=== PATIENT | male | born 1995 | race Caucasian/White ===

== ENCOUNTER 2024-09-07 10:03 | Outpatient (AMB) | payer BC, SELFPAY ==
--- OUTSIDE RECORDS SUMMARY | 2024-09-07 10:08 | XMS_ITS | Data Portability ---
Author Organization DAMIEN Gray [facility] Address [address] [place] [phone] Assessment Encounter Date Assessment Date Assessment LastModified by Organization Details LastModified Time 10/19/2022 10/19/2022 Strep pharyngitis, treat with PCN VK x 10 days. Out of work until 11/18, no note needed vinh Not available 10/19/2022 12:25:06 Plan of Treatment Reminders Order Date Submit Date Provider Last Modified By Organization Details Last Modified Time Details Appointments None recorded. Lab rapid strep group A, throat 2022 023 [facility] [address], [address] [place] [address], [phone], 3 12:20:23 rapid SARS CoV 2 Ag, QL IA, respiratory specimen 2022 023 [place] [address] _[facility], [address] [place] [address], [phone], 3 12:20:23 rapid flu (A+B) 2022 023 [place] [address], [address] [place] [address], [phone], 3 12:20:23 Referral None recorded. Procedures None recorded. Surgeries None recorded. Imaging None recorded. Medication Orders penicillin V potassium 500 mg tablet 2022 023 [id number], [address] [facility] [place], [address], 12:22:31 Patient TargetsNo targets recorded. Patient Instructions Encounter Date Encounter Id Patient Instructions Last Modified By Organization Details Last Modified Time 10/19/2022 [id number] sore throat: car e instructions [email or web address] Not available 10/19/2022 12:20:22 Salt water gargles: Mix 1 teaspoonful of salt in a glass of warm water. Gargle and spit out the salt water mixture one mouthful at a time until the glass is empty. Repeat 4 times daily. Please consult our office promptly if you develop any of the following symptoms: 1. A fever of at least 101??F or 38.4??C 2. Throat pain that is severe or does not start to improve within 5 to 7 days Call for an ambulance or go to the emergency room if you: 1. Have trouble breathing 2. Cannot control your saliva (drooling) due to difficulty swallowing 3. Have swelling of the neck or tongue 4. Cannot move your neck or have trouble opening your mouth [email or web address] Not available 10/19/2022 12:21:58 Reason for Referral None Reported. Results Created Date Observation Date Name Description Value Unit Range Abnormal Flag Note LastModifiedBy Organization Detail LastModifiedTime 10/19/1910/19/2022 rapid flu (A+B) Unknown Analyte Normal = Negati ve Not Available [facility] [address] [place] [address] [place], [phone], 10/19/2022 11:54:58 10/19/1910/19/2022 rapid flu (A+B) Unknown Analyte Normal = Negati ve Not Available [facility] [address] [place] [address] [place], [phone], 10/19/2022 11:54:58 10/19/1910/19/2022 rapid flu (A+B) Unknown Analyte negati ve Not Available [facility] [address] [place] [address] [place], [address], 10/19/2022 11:54:58 10/19/19 23 10/19/2022 rapid flu (A+B) Unknown Analyte negati ve Not Available [address] [place] [address], [place], [phone], 10/19/2022 11:54:58 10/19/19 23 10/19/2022 rapid SARS CoV 2 Ag, QL IA, respi rator y speci men Unknown Analyte Normal =Negat rona Not Available [address] [place] [address], [place], [phone], 10/19/2022 11:54:53 10/19/19 23 10/19/2022 rapid SARS CoV 2 Ag, QL IA, respi rator y speci men Unknown Analyte negati ve Not Available [address] [place] [address], [place], [phone], 10/19/2022 11:54:53 10/19/19 23 10/19/2022 rapid strep group A, throa t Unknown Analyte Normal = Negati ve Not Available [address] [place] [address], [place], [phone], 10/19/2022 11:53:16 10/19/19 23 10/19/2022 rapid strep group A, throa t Unknown Analyte positi ve Not Available [address] [place] [address], [place], [phone], 10/19/2022 11:53:16 Result Notes None recorded. Problems No Known Problems Medical Equipment None Reported. Allergies No known drug allergies Medications Name Sig Start Date Stop Date Status Note LastModified by Organization Details LastModified Time penicillin V potassium 500 mg tablet Take 1 tablet twice a day by oral route for 10 days. 023 active Not Available Not Available Not Avai lable Vitals Date Recorded Body height Body mass index (BMI) Body weight Oxygen saturation Oxygen saturation in Arterial blood by Pulse oximetry Heart rate Respiratory rate Body temperature Systolic blood pressure Diastolic blood pressure Provider Name and Address Organization Details Last Updated DateTime 3 182.88 cm 31.2 kg/m2 796769. 25 g 97 % 97 % 87 /min 18 /min 99.1 [degF] 126 mm[Hg] 81 mm[Hg] Nidhi Caroline PA - [facility] 3 11:57:12 Social History Question Answer Notes LastModified by Organizat ion Details LastModified Time What Is Your Level Of Alcohol Consumption? None Information not available 10/19/2022 Have You Had Direct Contact, Or Contact During Intimacy, With Monkeypox Rash, Scabs, Or Body Fluids From A Person With Monkeypox? No Information not available 10/19/2022 Do You Or Have You Ever Used Smokeless Tobacco? Currently Chews Tobacco Information not available 10/19/2022 Do You Use Any Illicit Or Recreational Drugs? No Information not available 10/19/2022 Have You Recently Traveled Abroad? No Information not available 10/19/2022 Do You Or Have You Ever Used Any Other Forms Of Tobacco Or Nicotine? Yes Information not available 10/19/2022 Sex: Unknown Functional Status None recorded. Mental Status None recorded. Family History Relationship Description Onset Age of this Age Resolved Age Notes LastModified by Organization Details LastModified Time Father No current problems or disability Not available 10/19 11:54:19 Mother No current problems or disability Not available 10/19 11:54:19 Medical History No medical history recorded. Past Encounters Encounter ID Performer Location Encounter Start Date Encounter Closed Date Diagnosis/Indication Diagnosis SNOMED-CT Code Diagnosis ICD10 Code [id number] [address] [place] [address] 08/11/2020 17:01:09 08/11/2020 19:39:14 [id number] Kim Darnell [place] [address] [address] [place] [address] 10/19/2022 11:43:05 10/19/2022 12:22:30 Streptococcal sore throat 26116001 J02.0 Health Concerns Section Related Observation LastModified by Organization Detai ls LastModified Time None Recorded Concern Status LastModified by Organization Details LastModified Time None Recorded Advance Directives Directive None Recorded Payers Encounter Date Sequence Insurance Name Policy Number Policy Malin Covered Member ID Malin Member ID Guarantor Name 08/11/2020 1 [place] [id number] [employer] [id number] [employer] 10/19/2022 1 [employer] [employer] [id number] [employer] [place] [employer] [id number] [employer] Notes Date Note Type Note Provider Name and Address Organization Details Recorded Time 10/19/2022 text/html Sore throat x 2 weeks. Accompanied by R ear pain. Tmax: 102. Symptoms improved, now worsening again, temp = 100.9 last PM Kim Darnell, DO [address] [place], [address], [place] - [facility] 10/19/2022 12:25:47
--- NOTE | 2024-09-07 10:11 | MHC.PC.OV ---
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 Intake Note: establish care Allergies No Known Allergies [No Known Allergies*] Allergy (Verified 09/07/24 10:12) Medication List - Last Reconciled 09/07/24 by Ketan Castro MD sertraline (Zoloft) 50 mg PO DAILY Tobacco use date assessed: 09/07/24 Dental Screening Dental Screen Date: 09/07/24 Did you have a dental visit in the last 12 months?: Yes Did you have a dental problem in the last 6 months where you did not have access to dental care?: No Was dental information given to patient?: Patient has dentist 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 Tobacco dip, EtOH 3-4 dr a couple times a month. No drugs HPI Comments History of Present Illness Details Documentation assistance for Ketan Castro MD, was provided by Teofilo Garcia,? Analytics Manager on 09/07/2024 at 10:44 AM EST. I, Dr. Castro, have read, observed, and verified documentation. ?? PFSH Social History Housing: House Tobacco use type: Smokeless Tobacco e-Cigarette/Vaping Use: Never Used Second Hand Smoke Exposure: No service: No Current occupational status: unemployed Current occupational exposures/hazards: No Cognitive needs: No Hearing needs: No Vision needs: No Questionnaire PHQ-9 Over the last 2 weeks, how often have you been bothered by any of the following problems? 1. Little interest or pleasure in doing things: several days 2. Feeling down, depressed, or hopeless: not at all 3. Trouble falling or staying asleep, or sleeping too much: several days 4. Feeling tired or having little energy: several days 5. Poor appetite or overeating: not at all 6. Feeling bad about yourself - or that you are a failure or have let yourself or your family down: not at all 7. Trouble concentrating on things, such as reading the newspaper or watching television: not at all 8. Moving or speaking so slowly that other people could have noticed. Or the opposite - being so fidgety or restless that you have been moving around a lot more than usual: several days 9. Thoughts that you would be better off or of hurting yourself in some way: not at all Total score: 4 Depression Screening Interpretation: Negative Depression Screening Done: Yes 27385 - PHQ-9 Billing: Yes Source: Developed by Drs. Moe Mae, Aggie Aleman, Thanh Bojorquez and colleagues, with an educational juan ramon from [employer]. Thrive Questionnaire Date Thrive assessed: 09/07/24 I am a: Patient What is your living situation today?: I have a steady place to live Within the past 12 months, did the food you bought not last and you didn't have the money to get more?: Never true Within the past 12 months, did you worry whether your food would run out before you got money to buy more?: Never true Do you have trouble paying for medicines?: No Do you have trouble getting transportation to medical appointments?: No Do you have trouble paying your heating and electricity bill?: No Do you have trouble taking care of your child, family member or friend?: No Do you have trouble with day-to-day activities such as bathing, preparing meals, shopping, managing finances, etc.?: No Are you currently unemployed and looking for a job?: No Are you interested in more education?: No Please select the resources that you would like help with: None Currently or been in a relationship where the following occur: No concerns reported THRIVE Score: 0 AUDIT C Alcohol Use Questionnaire (AUDIT-C) 1. How often do you have a drink containing alcohol?: 2-3 times a week 2. How many drinks containing alcohol do you have on a typical day when you are drinking?: 5 or 6 3. How often do you have six or more drinks on one occasion?: Monthly Total Score: 7 PURA-7 AMB Questionnaire PURA-7 Date PURA - 7 assessed: 09/07/24 Feeling nervous, anxious, or on edge: 1 = Several days Not being able to stop or control worryin = Several days Worrying too much about different things: 1 = Several days Trouble relaxin = Several days Being so restless that it is hard to sit still: 1 = Several days Becoming easily annoyed or irritable: 1 = Several days Feeling afraid as if something awful might happen: 0 = Not at all Total PURA-7 score (0-4 normal; 5-9 mild; 10-14 moderate; 15-21 severe): 6 Source: Developed by Drs. Moe Mae, Aggie Aleman, Thanh Bojorquez and colleagues, with an educational juan ramon from [employer]. PURA-7 Assessment Billing PURA-7 Assessment Tool: PURA-7 Assessment 87277 Review of Systems Const Denies chills, Denies fatigue, Denies fever(s), Denies headache(s) and Denies weakness ENT Denies dizziness and Denies headache(s) Card Denies chest pain, Denies lightheadedness, Denies dyspnea and Denies other (Palpitations) Resp Denies cough, Denies dyspnea, Denies wheezing and Denies other ( shortness of breath) Musc Denies numbness and Denies tingling Neuro Denies dizziness, Denies headache(s), Denies numbness, Denies tingling, Denies paresthesias and Denies weakness Psych Reports anxiety and Denies depression Endo Denies fatigue Aller/Immun Denies wheezing Physical exam (Primary Care) Vital Signs: Last Vital Signs Temp 98.0 F 09/07/24 10:18 Pulse 54 09/07/24 10:18 Resp 16 09/07/24 10:18 BP 108/68 09/07/24 10:18 Pulse Ox 98 09/07/24 10:18 Oxygen Delivery Method Room Air 09/07/24 10:18 BMI result Body Mass Index 32.6 Tobacco/Smoking Status: Tobacco use Status Tobacco use date assessed 09/07/24 09/07/24 10:21 Tobacco use type Smokeless Tobacco 09/07/24 10:21 e-Cigarette/Vaping Use Never Used 09/07/24 10:21 PHQ-9: PHQ-9 Score PHQ-9: Total score 4 09/07/24 10:27 Depression Screening Interpretation: Negative Thrive Assessment: Date of Thrive Assessment Date Thrive assessed 09/07/24 09/07/24 10:21 Currently or been in a relationship where the following occur: No concerns reported Const General: no acute distress and well developed Nutritional Appearance: well nourished Orientation/consciousness: patient oriented x3 HENMT Head: Yes normocephalic and Yes atraumatic Eyes General: appearance normal, both eyes and all related structures Pupils: Equal, round and reactive pupils present EOM: EOMs intact bilaterally Resp Effort & Inspection: normal respiratory effort Auscultation: clear to auscultation bilaterally Cardio Rate: regular rate Rhythm: regular rhythm Heart sounds: S1 normal heart sound present, S2 normal heart sound present, no gallops, no murmurs and no rubs Neuro General: patient oriented x3 and gait normal Cranial nerves: Yes Equal, round and reactive pupils present Psych Affect: normal affect Coding Level of Care Code New Pt Level 3 (77358) Diagnoses Anxiety F41.9 Athlete's foot B35.3 Laboratory exam ordered as part of routine general medical examination Z00.00 Additional Codes PURA-7 Assessment Billing - PURA-7 Assessment Tool: PURA-7 Assessment 21572 ([id number]) PHQ-9 - 74423 - PHQ-9 Billing: Yes ([id number]) Assessment & Plan Assessment & Plan (1) Anxiety: Code(s): F41.9 - Anxiety disorder, unspecified Category: Medical Plan: Managed?on?sertraline Will?continue?current?medication (2) Athlete's foot: Code(s): B35.3 - Tinea pedis Category: Medical Plan: Patient?wears?steel?toe?boots?at?work?every?day?and?has?evidence?of?fungal?infections,?may?serration?of?skin?and?also?thickened?nails. We?discussed?foot?hygiene?and?topical?medications. Referring?him?to?Podiatry?as?requested (3) Laboratory exam ordered as part of routine general medical examination: Code(s): Z00.00 - Encounter for general adult medical examination without abnormal findings Category: Medical Plan: Check?labs Orders: Orders Comprehensive [place]. Panel Fast Today Z00.00 - Encounter for general adult medical examination without abnormal findings Lipid Panel Today Z00.00 - Encounter for general adult medical examination without abnormal findings TSH reflex Free T4 Today Z00.00 - Encounter for general adult medical examination without abnormal findings UA and rflx microscopic Today Z00.00 - Encounter for general adult medical examination without abnormal findings CT NG by PCR Today Z11.3 - Encounter for screening for infections with a predominantly sexual mode of transmission Hepatitis B,C Profile Today Z11.3 - Encounter for screening for infections with a predominantly sexual mode of transmission Microalbumin, Random (w Creat) Today I10 - Essential (primary) hypertension HIV Ab/Ag Today Z11.3 - Encounter for screening for infections with a predominantly sexual mode of transmission Syphilis Screen Today Z11.3 - Encounter for screening for infections with a predominantly sexual mode of transmission Referrals Podiatry Referral B35.3 - Tinea pedis, L60.2 - Onychogryphosis
[2024-09-07 10:18] VITALS: BP 108/68; PULSE 54; RESP 16; TEMP 36.7; O2SAT 98; BMI 32.6
== END 2024-09-07 10:49 | disposition home or self-care (01) ==
PROVIDERS: Visit Provider Family Medicine
DX: F41.9 Anxiety disorder, unspecified (principal); B35.3 Tinea pedis; Z00.00 Encounter for general adult medical examination without abnormal findings

== ENCOUNTER → 2024-09-07 10:03 | Outpatient (BNVA) | payer BC, SELFPAY | PROVIDERS: Visit Provider Family Medicine | DX: F41.9 Anxiety disorder, unspecified (principal); B35.3 Tinea pedis; Z79.899 Other long term (current) drug therapy | CPT/HCPCS: 96127 ==

== ENCOUNTER 2024-09-07 11:00 | Outpatient (REF) | payer BC, SELFPAY ==
[2024-09-07 14:24] LABS: Appearance Urine Cloudy; Color Urine Yellow; Glucose Urine UA Negative (Negative); Leukocyte Esterase Urine Negative (Negative); Nitrite Urine Negative (Negative); Urine Blood Negative (Negative); Urine Ketones Negative (Negative); Urine Protein Negative (Neg-Trace)
[2024-09-07 14:52] LABS: Alanine Aminotransferase 28 U/L (0-40); Albumin Level 4.7 g/dL (3.5-5.0); Alkaline Phosphatase 52 U/L (39-117); Anion Gap 11 (12-20); Aspartate Amino Transferase 24 U/L (5-37); Bilirubin Total 0.6 mg/dL (0.0-1.0); Blood Urea Nitrogen 17 mg/dL (9-16); Calcium 9.3 mg/dL (8.4-10.2); Carbon Dioxide 29 mmol/L (22-29); Chloride 105 mmol/L (96-108); Cholesterol 218 mg/dL (<200); Estimated Glomerular Filt Rate > 60; Glucose Fasting 95 mg/dL (60-99); HDL Cholesterol 53 mg/dL (>40); LDL Cholesterol Calculated 140 mg/dL (<100); Potassium 4.5 mmol/L (3.3-5.1); Sodium 140 mmol/L (135-145); Total Protein 7.8 g/dL (6.5-8.0); Triglycerides 127 mg/dL (<150)
[2024-09-07 15:03] LABS: Creatinine Urine 130.73 mg/dL; Microalbumin Urine < 5.0 mg/L
[2024-09-08 04:08] LABS: Syphilis Screen Nonreactive (Nonreactive)
[2024-09-08 04:42] LABS: HBS Num1 0.15 mIU/mL (0-7.99); HBc Num1 0.12 S/CO (0.00-0.79); HBsAGNum1 0.44 S/CO (0.00-0.99); HIV AB/AG Nonreactive (Nonreactive); HIV Num 1 0.08 S/CO (0.00-0.99); Hepatitis B Core Antibody Nonreactive (Nonreactive); Hepatitis B Surface Antigen Negative (Negative); ~HepC Num1 0.13 S/CO (0.00-0.79); ~Hepatitis B Surface Antibody NONREACTIVE (Nonreactive); ~Hepatitis C Antibody Nonreactive (Nonreactive)
== END 2024-09-07 11:01 | disposition home or self-care (01) ==
LOC: HO.WFDLDS 11:00
PROVIDERS: Visit Provider Family Medicine
DX: Z00.00 Encounter for general adult medical examination without abnormal findings (principal); I10 Essential (primary) hypertension; Z11.3 Encounter for screening for infections with a predominantly sexual mode of transmission
CPT/HCPCS: 36415; 80053; 80061; 81003; 82043; 82570; 84443; 86704; 86706; 86780; 86803; 87340; 87389